=== PATIENT | male | born 1950 | race Caucasian/White ===

== ENCOUNTER 2018-10-13 08:04 | Inpatient (IN) | payer BC, MEDICARE ==
--- NOTE | 2018-10-07 09:49 | HP ---
HISTORY AND PHYSICAL: DATE OF SURGERY: 10/13/18 DATE OF OFFICE VISIT: 10/03/18 SURGEON: Loretta Lucas MD.* (DICTATED BY KARLA HERNANDEZ) PROCEDURE: Left total hip arthroplasty. CHIEF COMPLAINT: Left hip pain. HISTORY OF PRESENT ILLNESS: Mr. Samaniego is a 67-year-old gentleman with continued complaints of left hip pain. He has failed conservative treatment and elected to proceed with a left total hip arthroplasty. PAST MEDICAL HISTORY: Hypertension and history of prostate cancer. PAST SURGICAL HISTORY: Left quadriceps tendon repair, tonsillectomy, adenoidectomy. CURRENT MEDICATIONS: 1. Amlodipine 5 mg daily. 2. Flomax 0.4 mg daily. 3. Zyrtec. 4. Ibuprofen. 5. Excedrin as needed. ALLERGIES: No known drug allergies. FAMILY HISTORY: Diabetes, COPD, and CHF. SOCIAL HISTORY: He is a 67-year-old gentleman who lives with his spouse. He does not smoke or use drugs. Uses occasional alcohol. REVIEW OF SYSTEMS: A complete 14-point review of systems was reviewed with the patient, was all negative or noncontributory. He denies a history of DVT, PE, hepatitis, HIV, or anesthesia problems. PHYSICAL EXAMINATION GENERAL: He is well developed, well nourished, in no acute distress. VITAL SIGNS: He stands 5 feet 7 inches tall and weighs 228 pounds. His blood pressure is 144/90 and heart rate is 72. HEENT: Normocephalic, atraumatic. NECK: Supple. No palpable lymph nodes. PULMONARY: The lungs are clear to auscultation bilaterally. CARDIO: Regular rate and rhythm. Strong S1, S2. ABDOMEN: Soft, nontender, and nondistended. NEUROLOGICAL: He is alert and oriented x3. MUSCULOSKELETAL: Left lower extremity: The skin is intact. There are no open wounds or abrasions. He lacks 15 to 20 degrees from neutral position, he has no internal rotation and 10 degrees of external rotation; 5/5 lower extremity strength, 2+ dorsalis pedis pulse, and intact sensation. ASSESSMENT AND PLAN: Mr. Samaniego is a 67-year-old gentleman with end-stage osteoarthritis of the left hip. He has failed conservative treatment and elected to proceed with a left total hip arthroplasty. The surgery is scheduled for 10/13/[address] Lucas discussed the risks and benefits of the surgery at today's visit and all of his questions were answered. He will follow up with Dr. Lucas 2 weeks after the surgery. KARLA HERNANDEZ [id number]/[facility] #: [id number] ENEIDA
[~2018-10-13 08:04] MED LIST: Dexamethasone TAB* 4 MG PO ONE; DiMENhydriNATE IV* 50 MG/ML VIAL IV PUSH PRN; Famotidine IV* 10 MG/ML 2 ML (20 mg) IV ONE; Gabapentin CAP(*) 300 MG PO ONE; Lactated Ringers 1000 ML Bag* 1,000 ML IV SCH; Morphine VIAL* 4 MG/ML VIAL (1 ml vial) IV PRN; Naloxone* 0.4 MG/ML 1 ML VIAL IV PRN; Ondansetron INJ* 2 MG/ML VIAL ONE; PROCHLORPERAZINE INJ 5 MG/ML 2 ML VIAL IV PRN; fentaNYL* 50 MCG/ML 2 ML VIAL (100 MCG VIAL) IV PRN; oxyCODONE/Acetamin 5/325 MG* TAB PO PRN
--- OUTSIDE RECORDS SUMMARY | 2018-10-13 08:07 | XMS REPORT | Continuity of Care Document ---
:1950 External Reference #:[id number] Author Name Elise Castaneda Care Team Providers Name Role Phone Escobar Pulliam MD Primary Care Physician Unavailable Payers Date Identification Numbers Payment Provider Subscriber Policy Number: [id number] Medicare Blue Ppo Ignacio Leonardo PayID: [id number] [address] [address] [place] [id number] Expires: 2018 Policy Number: [facility] Ignacio Leonardo [id number] PayID: [id number] [address] [place] [address] Advance Directives Description No Information Available Problems Date Description Provider Status Onset: 08/08/2018 Localized, primary osteoarthritis of the Loretta Enrique Lucas Active pelvic region and thigh Family History Date Family Member(s) Observation Comments General No Current Problems Social History Type Date Description Comments Sex Unknown 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 ETOH Use Occasionally consumes alcohol Tobacco Use Start: Unknown Patient has never smoked Smoking Status Reviewed: 10/03/18 Patient has never smoked Exercise Type/Frequency Exercises sporadically Allergies, Adverse Reactions, Alerts Description No Known Drug Allergies Medications Medication Date Status Form Strength Qnty SIG Indications Ordering Provider Amlodipine Active Tablets 5mg Heraclio Besylate 00 MD Escobar Flomax Active Capsules 0.4mg 1 by Unknown 00 mouth every day Zyrtec Allergy Active Unknown 00 Ibuprofen Active Unknown 00 Excedrin Active Unknown Migraine 00 Immunizations Description No Information Available Vital Signs Date Vital Result Comment 10/03/2018 7:57am Height 67.5 inches 5'7.50" Weight 228.00 lb Heart Rate 72 /min BP Systolic 144 mmHg BP Diastolic 90 mmHg BMI (Body Mass Index) 35.2 kg/m2 08/08/2018 11:27am Height 67.5 inches 5'7.50" Weight 227.00 lb Heart Rate 72 /min BP Systolic 148 mmHg BP Diastolic 80 mmHg BMI (Body Mass Index) 35.0 kg/m2 Results Test Date Facility Test Result H/L Range Note CBC Auto Diff 10/03/2018 [facility] White Blood 5.9 10^3/uL N 3.5-10.[address] [place] [address] [phone] Red Blood Count 5.39 10^6/uL N 4.00-5.40 Hemoglobin 16.6 g/dL N 14.0-18.0 Hematocrit 50 % N 42-52 Mean Corpuscular Volume 92 fL N 80-94 Mean Corpuscular Hemoglobin 31 pg N 27-31 Mean Corpuscular HGB Conc 33 g/dL N 31-36 Red Cell Distribution Width 13 % N 10.5-15 Platelet Count 220 10^3/uL N 150-450 Mean Platelet Volume 8.5 fL N 7.4-10.4 Abs Neutrophils 4.2 10^3/uL N 1.5-7.7 Abs Lymphocytes 0.8 10^3/uL Low 1.0-4.8 Abs Monocytes 0.6 10^3/uL N 0-0.8 Abs Eosinophils 0.2 10^3/uL N 0-0.6 Abs Basophils 0.1 10^3/uL N 0-0.2 Abs Nucleated RBC 0 10^3/uL Granulocyte % 71.4 % Lymphocyte % 13.5 % Monocyte % 9.7 % Eosinophil % 4.2 % Basophil % 1.2 % Nucleated Red Blood Cells % 0.1 Inr/Protime 10/03/2018 [facility] Inr 0.98 N 0.77-1.[address] [place] [address] [phone] Laboratory test 10/03/2018 [facility] Partial 32.8 seconds N 26.0-36.[address] [place] [address] PTT [phone] Urinalysis 10/03/2018 [facility] Urine [place] [address] [phone] Urine Appearance Clear Urine Specific [place] 1.020 N 1.010-1.030 Urine pH 6.0 N 5-9 Urine Urobilinogen Negative Negative Urine Ketones Negative Negative Urine Protein Negative Negative Urine Leukocytes Negative Negative Urine Blood Negative Negative Urine Nitrite Negative Negative Urine Bilirubin Negative Negative Urine Glucose Negative Negative Type & Screen 10/03/2018 [facility] Patient Blood Type A Positive [address] [place] [address] [phone] Antibody Screen NEGATIVE Comp Metabolic Panel 10/03/2018 [facility] Sodium 139 mmol/L N 135-145 [address] [place] [address] [phone] Chloride 106 mmol/L N 101-111 Co2 Carbon Dioxide 28 mmol/L N 22-32 Glucose 105 mg/dL High 70-100 Blood Urea Nitrogen 18 mg/dL N 6-24 Creatinine 1.07 mg/dL N 0.67-1.17 BUN/Creatinine Ratio 16.8 N 8-20 Calcium 9.3 mg/dL N 8.6-10.3 Total Protein 6.8 g/dL N 6.4-8.9 Albumin 4.4 g/dL N 3.2-5.2 Globulin 2.4 g/dL N 2-4 Albumin/Globulin Ratio 1.8 N 1-3 Total Bilirubin 1.00 mg/dL N 0.2-1.0 Alkaline Phosphatase 63 U/L N 34-104 Alt 26 U/L N 7-52 Ast 21 U/L N 13-39 Egfr Non- 69.1 >60 Egfr 83.7 >60 1 Potassium 5.1 mmol/L High 3.5-5.0 Anion Gap 5 mmol/L N 2-11 1 Because ethnic data is not always readily available, this report includes an eGFR for both -Americans and non- Americans. The National Kidney Disease Education Program (NKDEP) does not endorse the use of the MDRD equation for patients that are not between the ages of 18 and 70, are , have extremes of body size, muscle mass, or nutritional status, or are non- or non-. According to the National Kidney Foundation, irrespective of diagnosis, the stage of the disease is based on the level of kidney function: Stage Description GFR(mL/min/1.73 m(2)) 1 Kidney damage with normal or decreased GFR 90 2 Kidney damage with mild decrease in GFR 60-89 3 Moderate decrease in GFR 30-59 4 Severe decrease in GFR 15-29 5 Kidney failure <15 (or dialysis) Procedures Date Code Description Status 07/25/2017 72795 Colonoscopy Flexible Remove Tumor/Polyp/Lesion Snare Completed Technique 07/25/2017 [id number] Colonoscopy Completed Encounters Type Date Location Provider Dx Diagnosis Office Visit 08/08/2018 [facility] M25.552 [facility]12 Unilateral primary osteoarthritis, left hip Plan of Treatment Future Appointment(s):10/24/2018 10:15 am - Loretta Lucas M.D. at [facility]10/13/2018 11:00 am - [facility]:00 am - Loretta Lucas M.D. at [facility].10/03/2018 - Loretta Lucas M.D.M25.552 Pain in left hipFollow up:Follow up: 2 weeks after [id number] Unilateral primary osteoarthritis, left hip
--- OUTSIDE RECORDS SUMMARY | 2018-10-13 08:07 | XMS REPORT | Continuity of Care Document ---
:1950 External Reference #:[id number] Author Name Radhika Brooks Care Team Providers Name Role Phone Escobar Pulliam MD Primary Care Physician Unavailable Payers Date Identification Numbers Payment Provider Subscriber Policy Number: [id number] Medicare Blue Ppo Ignacio Leonardo PayID: [id number] [address] [address] [place] [address] Expires: 2018 Policy Number: [facility] Ignacio Leonardo [id number] PayID: [id number] [address] [place] [address] Advance Directives Description No Information Available Problems [...] BMI (Body Mass Index) 35.0 kg/m2 Results Description No Information Available Procedures Date Code Description Status 07/25/2017 09144 Colonoscopy Flexible Remove Tumor/Polyp/Lesion Snare Completed Technique 07/25/2017 [id number] Colonoscopy Completed Encounters Type Date Location Provider Dx Diagnosis Office Visit 08/08/2018 [facility] Loretta Lucas M25.552 Pain in left hip 11:00a [facility] M16.12 Unilateral primary osteoarthritis, left hip Plan of Treatment Future Appointment(s):10/24/2018 10:15 am - [facility] Lucas M.D. at [facility]/13/2018 11:00 am - [facility] 11:00 am - Loretta Lucas M.D. at [facility].10/03/2018 - Loretta Lucas M.D.M25.552 Pain in left hipFollow up:Follow up: 2 weeks after [id number] Unilateral primary osteoarthritis, left hip
[2018-10-13] MEDS ORDERED: Atracurium* 10 MG/ML 10 ML VIAL ONE (08:53)
[2018-10-13] MEDS ORDERED: Midazolam* 1 MG/ML 5 ML VIAL (5 MG) ONE (08:53)
[2018-10-13] MEDS ORDERED: fentaNYL* 50 MCG/ML 5 ML VIAL (250 MCG VIAL) ONE (08:53)
[2018-10-13] MEDS ORDERED: Gabapentin CAP(*) 100 MG ONE (09:05)
[2018-10-13] MEDS ORDERED: Gabapentin CAP(*) 400 MG PO ONE (09:06)
[2018-10-13] MEDS ORDERED: ceFAZolin 2 GM PREMIX in ORs 2 GM/50 ML BAG IVPB ONE (09:06)
[2018-10-13] MEDS ORDERED: Famotidine IV* 10 MG/ML 2 ML (20 mg) ONE (09:06)
[2018-10-13] MEDS ORDERED: Ondansetron ODT TAB* 4 MG ONE (09:06)
[2018-10-13] MEDS ORDERED: Dexamethasone TAB* 4 MG ONE (09:06)
[2018-10-13] MEDS: Buffered Lidocaine 1% SYRIN* 1 ML/SYRINGE INTRADERM ONE ×2 (10:05→16:33)
[2018-10-13] MEDS ORDERED: ROPIVACAINE 5 MG/ML 30 ML BTL (0.5%) ONE (10:18)
[2018-10-13] MEDS ORDERED: Morphine VIAL* 10 MG/ML 1 ML VIAL ONE (11:30)
[2018-10-13] MEDS ORDERED: Ketorolac INJ* 30 MG/ML 1 ML VIAL ONE (12:56)
[2018-10-13] MEDS ORDERED: Propofol* 10 MG/ML 20 ML BTL ONE (12:56)
[2018-10-13] MEDS ORDERED: PROCHLORPERAZINE INJ 5 MG/ML 2 ML VIAL ONE (12:56)
[2018-10-13] MEDS ORDERED: Lidocaine 2% PF * 5 ML VIAL ONE (12:56)
[2018-10-13] MEDS ORDERED: Metoprolol Tartrate IV* 1 MG/ML 5 ML VIAL ONE (13:15)
[2018-10-13] MEDS ORDERED: hydrALAZINE IV* 20 MG/ML VIAL ONE (13:15)
[2018-10-13] MEDS ORDERED: diPHENhydraMINE IV* 50 MG/ML 1 ml VIAL (BENADRYL) IV PRN (13:36)
[2018-10-13] MEDS ORDERED: oxyCODONE/Acetamin 5/325 MG* TAB PO PRN (13:36)
[2018-10-13] MEDS ORDERED: oxyCODONE TAB* 5 MG TAB PO PRN (13:36)
[2018-10-13] MEDS ORDERED: Bisacodyl SUPP* 10 MG SUPP PR PRN (13:36)
[2018-10-13] MEDS ORDERED: Ondansetron INJ* 2 MG/ML VIAL IV PRN (13:36)
[2018-10-13] MEDS ORDERED: Cyclobenzaprine TAB* 10 MG PO PRN (13:36)
[2018-10-13] MEDS ORDERED: Morphine VIAL* 4 MG/ML VIAL (1 ml vial) IV PRN (13:36)
[2018-10-13] MEDS ORDERED: Magnesium Hydroxide LIQ* 30 ML UDC PO PRN (13:36)
[2018-10-13] MEDS ORDERED: Lactated Ringers 1000 ML Bag* 1,000 ML IV SCH (14:00)
[2018-10-13] MEDS ORDERED: Warfarin TAB(*) 6 MG PO ONE (17:00)
[2018-10-13] MEDS ORDERED: Tamsulosin CAP* 0.4 MG PO SCH (17:00)
[2018-10-13] MEDS: ceFAZolin 1 GM ADVAN(*) 1 GM in NS 0.9% 50 ML* 50 ML IVPB SCH (18:40)
[2018-10-13] MEDS: Magnesium Hydroxide LIQ* 30 ML UDC PO SCH (21:49)
[2018-10-13] MEDS: Docusate CAP* 100 MG PO SCH (21:50)
--- NOTE | 2018-10-13 22:32 | CONS ---
CC: Dr. Loretta Lucas; Dr. Escobar Pulliam * CONSULTATION REPORT: DATE OF CONSULT: 10/13/18 PRIMARY CARE PROVIDER: Dr. Escobar Pulliam. ATTENDING PHYSICIAN: Dr. Urban Martinez (dictated by Sheba Chase NP). PHYSICIAN REQUESTING CONSULTATION: Dr. Loretta Lucas. REASON FOR CONSULT: Co-medical management in a patient with a history of hypertension. HISTORY OF PRESENT ILLNESS: Mr. Samaniego is a 67-year-old male with past medical history significant for hypertension, history of prostate cancer status post radiation, migraine headaches as a child, arthritis, BPH, who presented to the hospital today for an elective left total hip arthroplasty after he failed conservative treatments. He states that he has been in his usual state of health leading up to his surgery with no complaints. He denies any fevers, chills, chest pain, shortness of breath, nausea, vomiting, diarrhea, urinary symptoms. He does state that he has nasal congestion due to allergies and recently started on, he believes, Flonase for this. In the postoperative period , the patient is doing well, his pain is controlled, his blood pressures have been normotensive. The hospitalists were asked to assist with co-medical management of this patient during his hospitalization. PAST MEDICAL HISTORY: 1. Hypertension. 2. History of prostate cancer, status post radiation. 3. Migraine headaches. 4. Arthritis. 5. BPH. PAST SURGICAL HISTORY: 1. Status post left quadriceps tendon repair. 2. Status post tonsillectomy. 3. Status post adenoidectomy. HOME MEDICATIONS: Include: 1. Amlodipine 5 mg oral daily. 2. Flomax 0.4 mg oral daily. 3. Zyrtec 10 mg oral daily as needed for allergy symptoms. 4. Ibuprofen 400 mg oral as needed for pain. 5. Excedrin Migraine 2 tablets by mouth 2 times a day as needed for migraine headache. ALLERGIES: No known drug allergies. FAMILY HISTORY: The patient's maternal grandmother passed at age 88. She had a history of diabetes mellitus. The patient's mother passed at age 74 with a history of COPD. Maternal grandmother with Alzheimer's dementia. Paternal grandfather passed at 89. Paternal grandmother with history of Parkinson disease. Father passed at age 38 from an automobile accident. Paternal uncle with a history of COPD, paternal uncle with lung cancer. SOCIAL HISTORY: He denies tobacco, recreational drug use. He occasionally drinks alcohol. His , Kristen Samaniego, will be his surrogate decision maker in the event he is unable to make decisions for himself. REVIEW OF SYSTEMS: I performed an 11-point review of systems. All the pertinent positives and negatives mentioned in the history of present illness. Remaining review of systems are negative. PHYSICAL EXAM: Vital Signs: Temperature 97.5, heart rate 82, respiratory rate 20, O2 sat 97% on room air, blood pressure 125/72. General Appearance: The patient is alert, pleasant, appears to be in no acute distress. HEENT: Normocephalic, atraumatic. Pupils are equal, reactive to light. Extraocular movements are intact. Respiratory: There is no accessory muscle use. The lungs are clear to auscultation bilaterally. Cardiovascular: Regular rate and rhythm. S1, S2 present. There are no murmurs, rubs, or gallops heard. Abdomen : Soft, nontender, and nondistended. There are bowel sounds present x4. Extremities: No lower extremity edema. DP and PT pulses are 2+ and symmetric. Musculoskeletal: There is no clubbing or cyanosis noted. The patient exhibits good strength in all extremities. Neurological: Alert and oriented x4. Cranial nerves II through XII are grossly intact. Psychological: Calm and cooperative. Skin: There are no rashes or abnormalities seen in the exposed skin. DIAGNOSTIC STUDIES/LAB DATA: Preoperative labs from 10/03/18: Sodium 139, potassium 5.1, chloride 106, CO2 of 28, BUN 18, creatinine 1.07, glucose 105. White blood cell count 5.9, hemoglobin 16.6, hematocrit 50, platelet count 220, 000. Urinalysis negative with UA no growth. IMPRESSION: Mr. Samaniego is a 67-year-old male with past medical history significant for hypertension, prostate cancer status post radiation, benign prostatic hypertrophy, arthritis, and migraine headaches, who presented to the hospital for an elective left total hip arthroplasty with Dr. Loretta Lucas today. The hospitalists have been asked to assist with co-medical management of this patient during his hospitalization. ASSESSMENT AND PLAN: 1. Status post left total hip arthroplasty. Management per Orthopedic Surgery. He will have his H and H trended. He will have a BMP in the morning. He will be placed on a bowel and pain medication regimen, have physical therapy and occupational therapy and have a urinary catheter in place until postop day 1. 2. Hypertension. The patient has been normotensive postoperatively after initially being hypotensive in the recovery room. I am going to continue his amlodipine. 3. Prostate cancer, status post radiation and benign prostatic hypertrophy. He will continue to follow with Dr. Mohan as needed for followup after radiation and will be continued on tamsulosin for his benign prostate hypertrophy. 4. Migraine. This is not often an issue anymore for the patient, but he can use Excedrin as needed. 5. Allergy symptoms. Continue Zyrtec as needed. 6. Fluids, electrolytes, and nutrition. He will be on a regular diet. 7. Code status. Full code. 8. DVT prophylaxis. He is on Lovenox bridged to warfarin per Orthopedic Surgery. 9. Disposition. Inpatient with disposition per Orthopedic Surgery. TIME SPENT: Time for this consultation was approximately 60 minutes, greater than half of that was spent with the patient discussing medications, past medical history, the events leading up to his arrival today, and performing a physical examination. The case has been reviewed with the attending, Dr. Martinez, who agrees with the plan of care. SHEBA CHASE, JOSE LUIS [id number]/[facility] #: [id number] MTDShreya
[2018-10-13] MEDS: Acetaminophen TAB* 325 MG PO PRN (23:40)
--- NOTE | 2018-10-14 00:36 | OP ---
DATE OF OPERATION: 10/13/18 - ROOM #341 DATE OF : 52 ATTENDING SURGEON: Loretta Lucas MD IMPROVEMENT ADVISOR: KARLA Dexter. Mr. Hinds did help throughout the procedure with preparation of the leg, wound retraction, manipulation of the hip, and wound closure. ANESTHESIOLOGIST: Dr. Martinez. ANESTHESIA: Spinal. PRE-OP DIAGNOSIS: Severe end-stage degenerative osteoarthritis of the left hip joint. POST-OP DIAGNOSIS: Severe end-stage degenerative osteoarthritis of the left hip joint. OPERATIVE PROCEDURE: Left total hip arthroplasty. COMPLICATIONS: None. ESTIMATED BLOOD LOSS: 250 cc. SPECIMEN: Femoral head and acetabular reaming sent to Pathology. HARDWARE USED: This is uncemented Aurora total hip arthroplasty hardware. For the cup, a Tritanium cluster hole shell 54E. For the liner, a Trident X3 10 -degree polyethylene insert. For the stem, an Accolade II size 6 with a 127- degree neck angle. For the head, a Biolox delta ceramic V40 femoral head, 36 - 2.5. BRIEF HISTORY/INDICATION: Mr. Samaniego is a 67-year-old gentleman with left hip pain over many years. His radiograph showed advanced arthritis with bone-on- bone contact. He failed conservative treatment with antiinflammatories, pain medication, and physical therapy. Due to continued pain and decreased quality of life, he elected to undergo left total hip arthroplasty. Informed consent was obtained from the patient. He understood the risks of surgery included but were not limited to bleeding, infection, damage to nearby structures, continued pain, need for further surgery, intraoperative fracture, nerve palsy, hardware failure or loosening, dislocation, leg length discrepancies, stroke, heart attack, blood clot, and . He wished to proceed. INTRAOPERATIVE FINDINGS: Intraoperatively, the patient was noted to have severe end-stage arthritis with complete loss of cartilage along the femoral head and acetabulum. He had extensive osteophyte formation around the entire anterior and inferior acetabulum. Significant subchondral sclerosis of the acetabular bone. DESCRIPTION OF PROCEDURE: Mr. Samaniego was identified in the preanesthesia unit. His left lower extremity was marked as the correct operative site. Informed consent was signed and placed in the chart. The patient was taken to the operating room and placed under anesthesia. A Mario catheter was placed. The patient was placed in the right lateral decubitus position on the pegboard. All bony prominences were well padded. Left lower extremity was prepped and draped in the usual sterile fashion. Pre-op time-out was made to correctly identify the patient, side, and site. Appropriate perioperative antibiotics were given within 1 hour of incision. A standard posterior hip incision was made with a 10-blade and carried down to the lateral fascia layer. Lateral fascia layer was incised in line with the skin incision. Charnley retractor was placed. The piriformis and conjoint tendons were identified and elevated off the posterolateral femur using electrocautery. These were tagged with #5 Ethibond. Electro-cautery was then used to make a standard posterolateral capsular flap and this was also tagged with #5 Ethibond. The hip was dislocated. Lesser troch to center of the femoral head measured 58 mm. Oscillating saw was used to make the appropriate femoral neck cut and the femoral head was removed. The femur was retracted anteriorly. After appropriate placement of retractors, the acetabulum was well visualized. There was extensive osteophyte rim around the entire acetabulum, but most prominent anteriorly and inferiorly. The acetabulum was sequentially reamed up to a size 53 reamer. A 53 reamer obtained a bleeding subchondral bone bed. A 53 trial had excellent fit and stability. Final implant chosen was a Tritanium cluster hole shell 54E. This cup was impacted into the acetabulum without difficulty. The cup was stable with appropriate anteversion and abduction angle. A thin osteotome was used to remove a rim of osteophyte anteriorly to prevent impingement. Liner chosen was a 10-degree polyethylene Trident X3 liner. This was impacted into the acetabulum. Stability of the liner was checked and rechecked and noted to be stable. Attention was turned to preparation of the femoral canal. A canal finder was used to enter the proximal femur. Proximal femur was sequentially broached up to a size 6. Size 6 broach had excellent fit and stability. A 127 neck trial with a 36 +0 head trial was chosen. Lesser troch to center of the femoral head measured 63 mm; therefore, a -2.5 head was chosen. Lesser troch to center of the femoral head measured 60 mm. The hip was reduced and taken through range of motion. The hip was stable in all positions. There was good soft tissue tension and appropriate leg length. The hip was dislocated. All trials were removed. Final implant chosen was an Accolade II size 6 with a 127-degree neck angle. This was impacted into the femoral canal. The stem was stable with appropriate anteversion. A Biolox delta ceramic V40 femoral head 36 -2.5 was chosen as the final implant. Lesser troch to center of the femoral head measured 60 mm. The hip was reduced and taken through range of motion. The hip was stable in all positions. There was good soft tissue tension and leg length. The hip was copiously irrigated with sterile saline. Previously tagged capsule and tendons were reapproximated to the posterolateral femur through two trochanteric drill holes. Lateral fascial layer was closed using interrupted #1 Vicryls. The rest of the incision was closed in a layered using 0 and 2-0 Vicryls. Skin was closed using running 3-0 Monocryl and Dermabond. Sterile Adaptic, 4x4s, and paper tape were used to cover the incision. The patient's anesthesia was reversed without difficulty. He was taken to the PACU in stable condition. Intended weightbearing will be weightbearing as tolerated. Intended DVT prophylaxis will be Eliquis. [id number]/[facility] #: [id number] ENEIDA
[2018-10-14] MEDS: ceFAZolin 1 GM ADVAN(*) 1 GM in NS 0.9% 50 ML* 50 ML IVPB SCH ×2 (02:33→09:54)
[2018-10-14 05:49] LABS: Hematocrit 39 % (42-52); Mean Platelet Volume 8.3 fL (7.4-10.4); Platelet Count 236 10^3/ul (150-450)
[2018-10-14 06:07] LABS: INR 1.22 (0.77-1.02)
[2018-10-14 06:11] LABS: BUN/Creatinine Ratio 15.8 (8-20); Calcium 8.7 mg/dL (8.6-10.3); EGFR African American 89.4 (>60); EGFR Non-African American 73.9 (>60); Potassium 4.6 mmol/L (3.5-5.0)
[2018-10-14] MEDS: oxyCODONE/Acetamin 5/325 MG* TAB PO PRN ×2 (06:18→12:57)
--- NOTE | 2018-10-14 08:02 | PN ---
Progress Note - Progress Note Date of Service: 10/14/18 SOAP: Subjective: resting comfortably with no complaints of pain Objective: Vital Signs Temp Pulse Resp BP Pulse Ox 99.0 F 79 16 108/60 96 10/14/18 03:31 10/14/18 03:31 10/14/18 06:18 10/14/18 03:31 10/14/18 04:10 Laboratory Last Values Hgb 13.0 g/dl (14.0-18.0) L 10/14/18 05:14 Hct 39 % (42-52) L 10/14/18 05:14 Plt Count 236 10^3/ul (150-450) 10/14/18 05:14 MPV 8.3 fL (7.4-10.4) 10/14/18 05:14 INR (Anticoag Therapy) 1.22 (0.77-1.02) H 10/14/18 05:14 Sodium 135 mmol/L (135-145) 10/14/18 05:14 Potassium 4.6 mmol/L (3.5-5.0) 10/14/18 05:14 Chloride 104 mmol/L (101-111) 10/14/18 05:14 Carbon Dioxide 27 mmol/L (22-32) 10/14/18 05:14 Anion Gap 4 mmol/L (2-11) 10/14/18 05:14 BUN 16 mg/dL (6-24) 10/14/18 05:14 Creatinine 1.01 mg/dL (0.67-1.17) 10/14/18 05:14 Est GFR ( Amer) 89.4 (>60) 10/14/18 05:14 Est GFR (Non-Af Amer) 73.9 (>60) 10/14/18 05:14 BUN/Creatinine Ratio 15.8 (8-20) 10/14/18 05:14 Glucose 130 mg/dL (70-100) H 10/14/18 05:14 Calcium 8.7 mg/dL (8.6-10.3) 10/14/18 05:14 incision: c/d PE: able to dorsi flex/plantar flex, 2+ DP pulse, intact sensation Assessment: s/p left CHELSEY; POD #1 Plan: 1) PT/OT- WBAT 2) D/C coumadin; start Eliquis BID 3) possibly home today if passes PT goals
[2018-10-14] MEDS: Docusate CAP* 100 MG PO SCH (08:21)
[2018-10-14] MEDS: Magnesium Hydroxide LIQ* 30 ML UDC PO SCH (08:22)
[2018-10-14] MEDS ORDERED: amLODIPine TAB* 5 MG PO SCH (09:00)
[2018-10-14] MEDS ORDERED: Pneumococcal *Vac Polyvalent 0.5 ML VIAL IM ONE (09:00)
[2018-10-14] MEDS ORDERED: Apixaban* 2.5 MG TAB PO SCH (09:00)
[2018-10-14] MEDS ORDERED: Enoxaparin(*) 40 MG/0.4 ML SYR SUBCUT SCH (09:00)
[2018-10-14] MEDS ORDERED: Apixaban* 2.5 MG TAB PO ONE (09:49)
[2018-10-14] MEDS: Acetaminophen TAB* 325 MG PO PRN (09:50)
--- NOTE | 2018-10-14 11:48 | DS ---
DISCHARGE SUMMARY: DATE OF ADMISSION: 10/13/18 DATE OF DISCHARGE: 10/14/18 SURGEON: Loretta Lucas MD.* (DICTATED BY KARLA HERNANDEZ) PRINCIPAL DIAGNOSIS: Severe end-stage osteoarthritis of the left hip. DISCHARGE DIAGNOSIS: Severe end-stage osteoarthritis of the left hip. HISTORY OF PRESENT ILLNESS: Mr. Samaniego is a 67-year-old gentleman. He failed conservative treatment and elected to proceed with a left total hip arthroplasty. HOSPITAL COURSE: Mr. Samaniego is a 67-year-old gentleman who was admitted electively to the hospital on 10/13/18 and underwent a left total hip arthroplasty. Postoperatively, he did well without complications. He passed the physical therapy goals and he was discharged home on 10/14/18. PHYSICAL EXAMINATION UPON DISCHARGE: His wound was clean, dry, and healing well. There was no sign of infection. He had 2+ dorsalis pedis pulse. He was able to dorsiflex and plantar flex. He had intact sensation. He was ambulating well with a walker. DISCHARGE MEDICATIONS: 1. Percocet 5/325 mg 1 to 2 tabs every 4-6 hours for pain. 2. Eliquis 2.5 mg twice a day for 30 days. 3. Colace 100 mg tabs 1-3 daily as needed for constipation. 4. Flomax 0.4 mg daily. DISCHARGE DISPOSITION: He was discharged home in stable condition. DISCHARGE INSTRUCTIONS: He was discharged home. He is weightbearing as tolerated. Posterior hip precautions are in place and he is instructed to wear the abduction pillow whenever in bed. He was given prescription for Percocet for pain and Colace for constipation and Eliquis twice a day for 30 days for DVT prophylaxis. He can start showering tomorrow letting the soap and water run over the incision, pat the area dry and he will follow up with Dr. Lucas in clinic in 2 weeks. KARLA HERNANDEZ [id number]/CPS #: [id number] MTDD
[2018-10-14 16:51] VITALS: BP 151/64
== END 2018-10-14 14:26 | disposition home or self-care (01) | DRG 470 ==
LOC: AA 08:04 → SSU 15:08
PROVIDERS: ADMIT Orthopaedic Surgery Adult Reconstructive Orthopaedic Surgery; ATTEND Orthopaedic Surgery Adult Reconstructive Orthopaedic Surgery
PROC: 0SRB04A Replacement of Left Hip Joint with Ceramic on Polyethylene Synthetic Substitute, Uncemented, Open Approach (ICD-10-PCS; principal; 2018-10-13 10:00)
DX: M16.12 Unilateral primary osteoarthritis, left hip (principal); I10 Essential (primary) hypertension; G43.909 Migraine, unspecified, not intractable, without status migrainosus; E66.9 Obesity, unspecified; N40.0 Benign prostatic hyperplasia without lower urinary tract symptoms; J30.9 Allergic rhinitis, unspecified; M25.752 Osteophyte, left hip; Z85.46 Personal history of malignant neoplasm of prostate; Z83.3 Family history of diabetes mellitus; Z83.6 Family history of other diseases of the respiratory system; Z72.89 Other problems related to lifestyle; Z92.3 Personal history of irradiation; Z86.010 Personal history of colon polyps; Z81.8 Family history of other mental and behavioral disorders; Z80.1 Family history of malignant neoplasm of trachea, bronchus and lung; Z68.36 Body mass index [BMI] 36.0-36.9, adult
CPT/HCPCS: 36415; 80048; 85014; 85018; 85049; 85610; 90732; A9270-GY; G8978-GP-CJ; G8979-GP-CI; G8987-GO-CJ; G8988-GO-CI; J0360; J0690; J0780; J1650; J1885; J2250; J2270; J2704; J2795; J3010; J3490; J8540

== ENCOUNTER 2020-09-06 11:00 | Inpatient (IN) ==
[2020-09-27] MEDS ORDERED: Lactated Ringers 1000 ml BAG 1,000 ML IV SCH (06:00)
[2020-09-27] MEDS ORDERED: Buffered Lidocaine 1% SYRIN 1 ml INTRADERM ONE (06:00)
[2020-10-18] MEDS ORDERED: Buffered Lidocaine 1% SYRIN 1 ml INTRADERM ONE (06:00)
[2020-10-18] MEDS ORDERED: Acetaminophen IV 1 GM/100ML 1,000 MG/100 ML VIAL IVPB ONE (06:00)
[2020-10-18] MEDS ORDERED: Succinylcholine 200 mg VIAL 20 mg/ml 10 ml VIAL (200 mg) ONE (12:24)
[2020-10-18] MEDS ORDERED: Acetaminophen IV 1 GM/100ML 100 ML ONE (12:57)
[2020-10-18] MEDS ORDERED: ceFAZolin 2 GM PREMIX 2 GM/50 ML BAG ONE (12:57)
[2020-10-18] MEDS ORDERED: Lidocaine 2% PF 5 ML VIAL ONE ×2 (13:19→14:02)
[2020-10-18] MEDS ORDERED: Propofol 10 MG/ML 20 ML BTL ONE (13:19)
[2020-10-18] MEDS: Lactated Ringers 1000 ml BAG 1,000 ML IV SCH ×3 (13:43→19:04)
[2020-10-18] MEDS ORDERED: fentaNYL 100 mcg/2 ml 50 MCG/ML VIAL ONE (13:56)
[2020-10-18] MEDS ORDERED: HYDROmorphone 1 MG/1 ML SYRINGE ONE ×2 (13:57→14:01)
[2020-10-18] MEDS ORDERED: Midazolam 2 mg/2 ml VIAL 1 mg/ml 2 ml VIAL (2 mg) ONE (13:57)
[2020-10-18] MEDS ORDERED: Dexamethasone IV 4 MG/ML VIAL 1 ml VIAL ONE (14:02)
[2020-10-18] MEDS ORDERED: Ondansetron 4 mg VIAL 2 MG/ML 2 ml VIAL ONE (14:02)
[2020-10-18] MEDS ORDERED: Rocuronium 50 mg VIAL 10 mg/ml 5 ml VIAL (50 mg) ONE ×2 (14:03→14:59)
[2020-10-18] MEDS ORDERED: ROPIVACAINE 5 MG/ML 30 ML BTL (0.5%) ONE (14:19)
[2020-10-18] MEDS ORDERED: diPHENhydraMINE IV 50 MG/ML 1 ml VIAL (BENADRYL) IV PRN ×2 (16:25→16:47)
[2020-10-18] MEDS ORDERED: Magnesium Hydroxide LIQ 30 ML UDC PO PRN (16:25)
[2020-10-18] MEDS ORDERED: Ondansetron 4 mg VIAL 2 MG/ML 2 ml VIAL IV PRN ×2 (16:25→16:47)
[2020-10-18] MEDS ORDERED: Morphine 2 MG/ML SYRINGE IV PRN (16:25)
[2020-10-18] MEDS ORDERED: diPHENhydraMINE 25 mg TAB PO PRN (16:25)
[2020-10-18] MEDS ORDERED: Ondansetron ODT 4 mg TAB 4 MG TAB PO PRN (16:25)
[2020-10-18] MEDS ORDERED: Lactulose 30 ml UDC PO PRN (16:25)
[2020-10-18] MEDS ORDERED: DiMENhydriNATE IV 50 mg/ml 1 ml VIAL IV PUSH PRN (16:47)
[2020-10-18] MEDS ORDERED: HYDROmorphone 1 MG/1 ML SYRINGE IV PRN (16:47)
[2020-10-18] MEDS ORDERED: fentaNYL 100 mcg/2 ml 50 MCG/ML VIAL IV PRN (16:47)
[2020-10-18] MEDS ORDERED: Naloxone 0.4 mg VIAL 0.4 mg/ml 1 ml VIAL IV PRN (16:47)
[2020-10-18] MEDS ORDERED: Sugammadex 500 MG/5 ML 5 ml VIAL IV PUSH ONE (16:53)
[2020-10-18] MEDS: Magnesium Hydroxide LIQ 30 ML UDC PO SCH (20:41)
[2020-10-18] MEDS: ceFAZolin 1 GM ADVAN 1 GM in NS 0.9% 50 ML 50 ML IVPB SCH (22:56)
[2020-10-19] MEDS: Lactated Ringers 1000 ml BAG 1,000 ML IV SCH (05:24)
[2020-10-19] MEDS: ceFAZolin 1 GM ADVAN 1 GM in NS 0.9% 50 ML 50 ML IVPB SCH ×2 (06:05→13:57)
[2020-10-19 06:21] LABS: Hematocrit 41 % (42-52); Mean Platelet Volume 8.8 fL (7.4-10.4); Platelet Count 242 10^3/uL (150-450)
[2020-10-19 06:40] LABS: BUN/Creatinine Ratio 14.4 (8-20); Calcium 8.3 mg/dL (8.6-10.3); EGFR African American 79.7 (>60); EGFR Non-African American 65.9 (>60); Potassium 4.6 mmol/L (3.5-5.0)
[2020-10-19] MEDS ORDERED: Vitamin THERAPEUTIC TAB PO SCH (09:00)
[2020-10-19] MEDS: Magnesium Hydroxide LIQ 30 ML UDC PO SCH (09:25)
[2020-10-19 11:31] VITALS: BP 128/67
[2020-10-19] MEDS ORDERED: NS 0.9% 50 ML 50 ML ONE (13:38)
== END 2020-10-19 16:00 | disposition home or self-care (01) | DRG 470 ==
LOC: AA 10-18 12:11 → INTOOBSV 10-18 12:11 → SSU 10-18 16:25
PROVIDERS: ADMIT Orthopaedic Surgery Adult Reconstructive Orthopaedic Surgery; ATTEND Orthopaedic Surgery Adult Reconstructive Orthopaedic Surgery